=== PATIENT | female | born 1955 | race Two or more races ===

== ENCOUNTER 2025-06-14 08:27 | Emergency (ER) | payer OTHER ==
[~2025-06-14] VITALS: Ht 162.6 cm; Wt 51.3 kg
[2025-06-14 08:45] VITALS: TEMP 97.5
[2025-06-14 09:09] LABS: PLATELET COUNT (AUTO) 297 K/uL (150-450); RED BLOOD CELL COUNT(AUTO) 4.53 MIL/uL (4.0-5.2); RED CELL DISTRIBUTION WIDTH 14.4 % (11.5-15.0); WHITE BLOOD COUNT (AUTO) 8.6 K/uL (4.3-11.0)
[2025-06-14 09:16] LABS: CALCIUM, SERUM 9.1 mg/dL (8.5-10.1); CREATININE 0.7 mg/dL (0.6-1.3); SODIUM SERUM 139 mmol/L (136-145); UREA NITROGEN, BLOOD 6 mg/dL (7-18)
[2025-06-14 09:30] LABS: ASPARTATE AMINOTRANSFERASE 74 U/L (15-37); NT-PRO BNP 3129 pg/mL (0-125); TOTAL PROTEIN, SERUM 7.9 g/dL (6.4-8.2)
[2025-06-14] MEDS ORDERED: ASPIRIN 325 MG TABLET ONE (09:59)
[2025-06-14] MEDS: ASPIRIN 325 MG TABLET PO ONE (10:00)
[2025-06-14 12:24] VITALS: BP 158/92; O2SAT 95
== END 2025-06-14 12:47 | disposition short-term general hospital (02) ==
LOC: ER 08:29
DX: R53.1 Weakness (principal); R51.9 Headache, unspecified
CPT/HCPCS: 36415; 70450-TC; 71045-TC; 80048-TC; 80076-TC; 82962-TC; 83880; 84484-TC; 85025-TC; 87081-TC; G0480